=== PATIENT | female | born 1975 | race Caucasian/White ===

== ENCOUNTER 2022-10-02 06:00 | Day surgery (SDC) | payer OTHER ==
[~2022-10-02] VITALS: Ht 165.1 cm; Wt 108.1 kg
--- NOTE | ~2022-10-02 | OR ---
[facility] [address] [place], [place] [address] Draft DATE OF OPERATION: 10/02/2022 SURGEON: Renee Falk MD PREOPERATIVE DIAGNOSES: 1. Uterine fibroids. 2. Menometrorrhagia. POSTOPERATIVE DIAGNOSES: 1. Uterine fibroids. 2. Menometrorrhagia. PROCEDURES: 1. remove the uterus. 2. Cystoscopy. ANESTHESIA: General ET. ESTIMATED BLOOD LOSS: 150 mL. DRAINS: Staples catheter. INDICATIONS AND FINDINGS: The patient is a 46-year-old female, who has been having worsening problems with abnormal bleeding over the last 18 months. She was treated for kidney stones, was noted to have a very large uterus. Ultrasound confirmed approximately 9 cm fibroid on the right side of her uterus. Endometrial biopsy was benign. The patient elected to proceed with TLH. At the time of surgery, exam under anesthesia revealed a very large uterus with a large fibroid with irregular surface, predominantly on the patient's right side. At the time of laparoscopy, this was confirmed. The tubes and ovaries were normal. DESCRIPTION OF PROCEDURE: The patient was prepped and draped in the dorsal lithotomy position. A weighted speculum was placed. The anterior lip of the cervix was visualized and grasped with single-tooth tenaculum. The uterus was sounded to 11 cm. The endocervical canal was then dilated to a #8 dilator. The VCare cannula was placed and the balloon inflated at PATIENT NAME: BENTLEY KENT OPERATIVE REPORT DATE OF : 79 REPORT #: [id number] PHYSICIAN: RENEE FALK MD PCP: NO PRIMARY CARE PHYSICIAN REPORT IS CONFIDENTIAL AND NOT TO BE RELEASED WITHOUT AUTHORIZATION [facility] [address] [place], [place] [address] Draft the fundus. The tenaculum and speculum removed and the cup was fitted over the cervix and a locking cap fitted into place. Staples was also placed at this time. Attention was then directed above. The infraumbilical area was injected with 0.5% Marcaine plain. An incision was made with a knife, and each layer was serially elevated and incised until the fascia was opened and identified. Stay sutures of 0-Vicryl were placed. The peritoneum was opened bluntly and the Bassam cannula was placed and the balloon inflated and it was tied into place. Placement of the scope confirmed proper positioning. The abdomen was then inflated with carbon dioxide gas. The secondary ports were then placed. The left hand port was slightly below the level of the umbilicus and lateral. This area was transilluminated, injected with the Marcaine, incision was made with a knife and a 5 mm port placed under direct vision. The right-sided port was placed pretty far laterally, but just above the iliac crest. Again, this area was transilluminated, injected with the Marcaine incision made with a knife and the Veress needle inserted, followed by the expanding port. Following this, the pelvis was evaluated and it was felt that it would be possible though difficult to proceed as planned. The patient's left tube was grasped and the using the LigaSure [place] device, the mesosalpinx was serially coagulated and divided from the fimbriated end to the cornu and this was excised. The utero-ovarian ligament and round ligament were then serially coagulated and divided as well. The anterior leaf of the peritoneum was incised allowing for partial bladder flap. The peritoneum was taken down posteriorly as well. The uterine vessels were then identified and were coagulated multiple times and divided. Following this, attention was directed to the patient's right. The patient's right tube was grasped and the mesosalpinx was serially coagulated and divided from the fimbriated end to the cornu and divided. The specimen was retrieved through the port. Following this, the utero-ovarian and round ligament pedicles were serially coagulated and divided as well. The anterior peritoneum was taken down completing the bladder flap. Further dissection was done anteriorly, allowing for the cup to be seen. The peritoneum was taken down posteriorly with quite a bit of difficulty given the size of the fibroids. The uterine vessels were coagulated multiple times and divided as well. These appeared to be fairly spread out on the patient's right side. Attention was redirected to the patient's left and further dissection was done completing the posterior peritoneum as well as the remaining uterine vessels. It was felt at this point that the specimen could be from the cup. It should be noted that this entire procedure was quite difficult given the size of the uterus and the difficulty bringing up out of the pelvis. The [employer] device was then used to serially separate the specimen from the vaginal cuff starting at the patient's right uterosacral ligament and bringing around anteriorly and across the anterior aspect and then restarted posteriorly and completing the dissection anteriorly. Following this, the specimen was from the cuff. The VCare was then removed vaginally and the vaginal canal packed with a glove with a wet lap tape to allow the pneumoperitoneum to re-accumulate. The specimen was brought back into the pelvis and an attempt was made to put into the 10 cm bag, but this was unsuccessful and this was retrieved and the 15 cm bag was PATIENT NAME: BENTLEY KENT MARÍA OPERATIVE REPORT DATE OF : 79 REPORT #: [id number] PHYSICIAN: RENEE FALK MD PCP: NO PRIMARY CARE PHYSICIAN REPORT IS CONFIDENTIAL AND NOT TO BE RELEASED WITHOUT AUTHORIZATION [facility] [address] [place], [place] [address] Draft introduced through the center port and the specimen placed into the bag and brought up to the umbilical port. At this point, the Bassam was removed and the bag opened and Lali clamps were attached. The small Elijah was placed inside the bag and the specimen was removed with the insight procedure which was fairly difficult and prolonged given the size of the uterus, but the bag was found intact at the conclusion of this. The Elijah was then removed and the bag removed. The fascial incision, which had been expanded for placement of the bag was re-sutured part way to allow our incision to be of adequate size to retain our pneumoperitoneum and this was done with a running suture of 0-Vicryl. The Bassam was then replaced and the balloon inflated and tied into place. The abdomen was then copiously irrigated and inspected and there were a few bleeding points near the patient's left uterine vessel areas, which were coagulated with the LigaSure device. There was also noted to be a rent in the mesentery of the sigmoid. There was no evidence of any injury to the bowel itself. There was a little bit of bleeding at the base of this, but after a period of observation, this bleeding subsided. General surgeon, Dr. Magdaleno was asked to consult and he did not feel that further treatment of this rent was necessary at this point. The vaginal cuff was closed with a running suture of a barbed Prolene zero Prolene suture starting from the patient's right uterosacral ligament incorporating the vaginal mucosa both anteriorly and posteriorly and running to the left and back to the center. Following this, the abdomen was sprayed with Tisseel. Because of the large raw area given the size of her fibroids. This was also placed in that small rent in the mesentery. Good hemostasis was noted and these instruments removed from the abdomen after allowing as much CO2 as possible to escape. The fascial incision of the umbilicus was reidentified and closed with a running suture of 0-Vicryl. The skin incisions were closed with subcuticular sutures of 3-0 Vicryl Rapide. Attention was directed down below and the vaginal pack was removed. The Staples catheter was removed and a 30-degree scope was used to evaluate the bladder. She had received IV fluorescein. There was no evidence of any bladder injury. Free spill of fluorescein stained urine was seen pretty much immediately out of both ureteral orifices. The bladder was drained and the Staples catheter replaced. The procedure was then terminated. All sponge and needle counts were correct. She tolerated the procedure well and was taken to the recovery room in good condition. Renee Falk MD PJW/MODL /[id number] PATIENT NAME: BENTLEY KENT OPERATIVE REPORT DATE OF : 79 REPORT #: [id number] PHYSICIAN: RENEE FALK MD PCP: NO PRIMARY CARE PHYSICIAN REPORT IS CONFIDENTIAL AND NOT TO BE RELEASED WITHOUT AUTHORIZATION [address] [address] Draft cc: Patel Ray Sawant, DO Copies: SAWANT,PATEL D DO ~ PATIENT NAME: BENTLEY KENT MARÍA OPERATIVE REPORT DATE OF : 79 REPORT #: [id number] PHYSICIAN: RENEE FALK MD PCP: NO PRIMARY CARE PHYSICIAN REPORT IS CONFIDENTIAL AND NOT TO BE RELEASED WITHOUT AUTHORIZATION
[~2022-10-02 06:00] MED LIST: ALEVE220 MG PO; IMITREX25 MG PO; LISINOPRIL10 MG PO; OMEPRAZOLE20 M1 PO
[2022-10-02] MEDS ORDERED: TYLOPHEN500 MG PO (06:19)
--- NOTE | 2022-10-02 10:36 | NUR ---
PT ALERT, ORIENTED AND SUPPORTED BY HER NURIA. PT IS DEALING WITH HAVING TO WAIT FOR DR ATTENDING TO A DELIVERY. PT ANSWERS WITH BRIEF, BUT APPROPRIATE ANSWERS. PT REQUESTED PRAYER, NURIA WILL RETURN FOR DC. SAID HE NEEDED TO RUN AN ERRAND WHILE IN TOWN. WILL FOLLOW
--- NOTE | 2022-10-02 11:45 | NUR ---
10/02/22 1145 Magdalene Burgess 1104 PT ARRIVED IN PACU TEARFUL. REASSURED PT SURGERY WAS OVER AND EVERYTHING WENT PLANNED. 1116 C/O ABD PAIN 03/03. FENTANYL 50MCG GIVEN IVP. 1126 NO CHANGE IN PAIN LEVEL. FENTANYL 50MCG GIVEN IVP. C/O FEELING ANXIOUS. 1131 VERSED 2MG GIVEN IVP. 1135 SATS DROPPED TO 85% ON RA. ENCOURAGED COUGH, DEEP BREATHING WITH SATS INCREASING TO 89%. O2 AT 4L VIA NC PLACED. SATS 94-98%. 1144 RESTING. REU.
--- NOTE | 2022-10-02 12:43 | NUR ---
1204 PT BACK TO DS FROM PACU ALERT AND AWAKE DENIES NAUSEA. AMBROSE CATH REMOVED IN PACU. PT DRINKING WATER REQUESTS FOOD JELLO AND CRACKERS BROUGHT TO PT, SHE ATE BOTH TOLERATED WELL.
--- NOTE | 2022-10-02 12:46 | NUR ---
1225 PT COMPLAINS OF PAIN 5/10 REQUESTS PAIN MED. MORROT AND VALENTIN GIVEN. PT REPORTS FEELING COLD. JIM HUGGER PLACED BETWEEN BLANKETS. AT BEDSIDE. CALL LIGHT WITH IN REACH.
--- NOTE | 2022-10-02 13:15 | NUR ---
PT AMBULATED TO BATHROOM WITH MINIMAL ASSIST. SHE WAS ABLE TO VOID 200ML OF CLEAR YELLOW URINE. REPORTS PAIN IN 2/10 AND FEELS MUCH BETTER.
--- NOTE | 2022-10-02 13:36 | NUR ---
1320 SC REPORTS READINESS TO GO HOME IV DC'D, DISCHARGE INSTRUCTIONS GIVEN TO PT AND BOTH VOICED UNDERSTANDING. PT REPORTS PAIN IS IMPROVED. DENIES NAUSEA. SMALL AMOUNT OF SHADOWING ON BANDAID ON RLQ, OTHERS CLEAN AND DRY, BOBO PAD CLEAN AND DRY.
--- NOTE | 2022-10-03 07:18 | OR ---
[facility] [address] [place], [place] [address] Signed DATE OF OPERATION: 10/02/2022 SURGEON: Ben Crooks MD PREOPERATIVE DIAGNOSIS: Uterine fibroid tumors. POSTOPERATIVE DIAGNOSES: 1. Uterine fibroid tumors. 2. Serosal mesenteric opening. PROCEDURE: Hysterectomy. OPERATING SURGEON: Dr. Renee Falk. OPERATIVE FINDINGS: Sophia has undergone her laparoscopic assisted hysterectomy for her uterine fibroid tumors. She had just a small maybe 2 cm in length opening in the serosa over the sigmoid colon as it was coming down towards the rectum on the left side. I had been asked by Dr. Falk just to look at that and give my intraoperative opinion. In general, it is nice to close it but laparoscopic suturing device . In that regard, it becomes somewhat technically difficult to close that. It certainly is fine to do that, but in this situation, it is quite small and shallow and I think it would be fine to just leave that as the sigmoid colon is going to lie down in the pelvis anyway. Therefore, it was decided to go ahead and just leave that small area open. It will heal in just fine. Ben Crooks MD ALB/LAURAL /[id number] cc: Ben Crooks MD Electronically Signed By: BEN CROOKS MD 10/03/22 0718 PATIENT NAME: SOPHIA KENT OPERATIVE REPORT DATE OF : 79 REPORT #: [id number] PHYSICIAN: BEN CROOKS MD PCP: NO PRIMARY CARE PHYSICIAN REPORT IS CONFIDENTIAL AND NOT TO BE RELEASED WITHOUT AUTHORIZATION [address] [address] Signed Copies: BEN CROOKS MD ~ Electronically Signed By: BEN CROOKS MD 10/03/22 0718 PATIENT NAME: SOPHIA KENT OPERATIVE REPORT DATE OF : 79 REPORT #: [id number] PHYSICIAN: BEN CROOKS MD PCP: NO PRIMARY CARE PHYSICIAN REPORT IS CONFIDENTIAL AND NOT TO BE RELEASED WITHOUT AUTHORIZATION
--- NOTE | 2022-10-06 14:38 | PATH ---
[facility] [address] [place], [place] [address] Signed SPECIMEN(S): A UTERUS, CERVIX, BILAT TUBES, FIBROIDS SPECIMEN SOURCE: A. UTERUS, CERVIX, BILAT TUBES, FIBROIDS CLINICAL HISTORY: Intramural leiomyoma of uterus, menorrhagia. TLH, BS, cysto. FINAL PATHOLOGIC DIAGNOSIS: Uterus, cervix, bilateral fallopian tubes, hysterectomy with bilateral salpingectomy: - Ectocervical epithelium within normal limits. - Endocervical epithelium with focal squamous metaplasia. - Nabothian cysts. - Uterus with proliferative phase endometrium and features consistent with leiomyoma. - Fallopian tubes within normal limits. - Paratubal cysts. TWK:caw:[id number] MICROSCOPIC EXAMINATION: Histologic sections of all submitted blocks are examined by light microscopy. These findings, together with the gross examination, support the pathologic diagnosis. GROSS DESCRIPTION: The specimen, labeled "AP, A," and designated on the requisition "uterus, cervix, fibroids, bilateral fallopian tubes," is received in formalin and consists of a morcellated uterus (451 g, 15.0 x 15.0 x 7.5 cm in aggregate). The attached cervix (4.0 cm in length x 3.0 cm in diameter) with pink-solano to hemorrhagic cervical mucosa and slit-shaped os (0.8 x 0.4 cm), and two detached and undesignated fimbriated fallopian tube segments (4.5 cm in length x 0.8 cm in diameter and 3.8 cm in length x 0.8 cm in diameter). One fallopian tube segment is arbitrarily inked blue. Both fallopian tubes are sectioned to reveal grossly unremarkable cut surfaces. Sectioning of the cervix reveals a solano, wrinkled endocervix (endocervical canal: 3.5 cm in length x up to 0.9 cm in diameter) with multiple mucoid material filled cysts within the wall of the cervix that measure up to 0.8 cm in greatest dimension. The remainder of the specimen shows pink-solano, trabeculated PATIENT NAME: BENTLEY KENT PATHOLOGY DATE OF : 79 REPORT #: [id number] PHYSICIAN: ELVIS CASPER PCP: NO PRIMARY CARE PHYSICIAN REPORT IS CONFIDENTIAL AND NOT TO BE RELEASED WITHOUT AUTHORIZATION [facility] [address] [place], [place] [address] Signed myometrium, red-brown endometrium (measuring up to 0.3 cm in thickness), red-pink uterine serosa and white-solano, whorled nodular tissue (approximately 11.0 x 7.5 x 6.0 cm in aggregate). Sausage Wrapper sections are submitted as follows: (A1-A2) Fallopian tubes (A3) Cervix (A4) Endomyometrium (A5-A8) Whorled, nodular tissue AC (under the direct supervision of a pathologist) The Gross Description was prepared using a voice recognition system. The report was reviewed for accuracy; however, sound-alike word errors, addition and/or deletions may occur. If there is any question about this report, please contact Client Services. PERFORMING LABORATORY: The technical component was performed by [facility], [address] [place] [id number] (CLIA# [id number]). The professional interpretation was performed by [facility], [facility], [address] [place] [address] (CLIA#: [id number]). Diagnostician: Tom Ba MD Pathologist Electronically Signed 10/06/2022 Copies: ~ PATIENT NAME: YOLIBENTLEY MARÍA PATHOLOGY DATE OF : 79 REPORT #: [id number] PHYSICIAN: ELVIS PATHOLOGY PCP: NO PRIMARY CARE PHYSICIAN REPORT IS CONFIDENTIAL AND NOT TO BE RELEASED WITHOUT AUTHORIZATION
== END 2022-10-02 13:25 | disposition home or self-care (01) ==
LOC: DS 06:00
PROVIDERS: ATTEND Obstetrics & Gynecology
PROC: 0UT94ZZ Resection of Uterus, Percutaneous Endoscopic Approach (ICD-10-PCS; principal; 2022-10-02 07:30)
PROC: 0UT74ZZ Resection of Bilateral Fallopian Tubes, Percutaneous Endoscopic Approach (ICD-10-PCS; 2022-10-02 07:30)
DX: D25.1 Intramural leiomyoma of uterus (principal); N92.1 Excessive and frequent menstruation with irregular cycle; K66.8 Other specified disorders of peritoneum; N87.9 Dysplasia of cervix uteri, unspecified; N88.8 Other specified noninflammatory disorders of cervix uteri; N83.8 Other noninflammatory disorders of ovary, fallopian tube and broad ligament; E66.09 Other obesity due to excess calories; K21.9 Gastro-esophageal reflux disease without esophagitis; I10 Essential (primary) hypertension; G43.009 Migraine without aura, not intractable, without status migrainosus; F17.210 Nicotine dependence, cigarettes, uncomplicated; Z87.442 Personal history of urinary calculi; Z88.2 Allergy status to sulfonamides; Z86.19 Personal history of other infectious and parasitic diseases; Z68.39 Body mass index [BMI] 39.0-39.9, adult
CPT/HCPCS: A9270; J0131; J0690; J1100; J1644; J1885; J2250; J2405; J2704; J2765; J3010; J3475; J7121